=== PATIENT | female | born 1960 | race Caucasian/White ===

== ENCOUNTER → 2022-01-16 | Outpatient (CLI) | payer BC ==
--- NOTE | 2022-01-16 15:07 | Diagnostic Imaging Report ---
PROCEDURE: CT right lower extremity without contrast. TECHNIQUE: Axially acquired CT was obtained through the right lower extremity without intravenous contrast. Coronal and sagittal reformations were also performed. Auto Exposure Controls were utilized during the CT exam to meet ALARA standards for radiation dose reduction. INDICATION: Closed fracture of the tibial plateau. Displaced fracture of the tibial condyle. Pain. EXAMINATION: CT of the right knee without contrast 01/16/2022. Correlation made to radiographs of the knee from 01/12/2022. FINDINGS: There is a comminuted fracture through the lateral tibial plateau with intra-articular extension noted. Lucencies extend into portions of the medial joint space. Fractures involve the tibial eminences as well. There is focal depression along the lateral tibial plateau measuring approximately 4 to 5 mm. A large vertical fracture line extends through the lateral aspect of the lateral tibial plateau causing a separate fracture fragment with diastases of approximately 3 to 4 mm. There is irregularity along the fibular head consistent with a nondisplaced fracture. The visualized aspects of the distal femur and the patella appear intact. There is a moderate to large lipohemarthrosis. There is fat stranding within the subcutaneous soft tissues likely reactive edema. IMPRESSION: 1. Depressed comminuted intra-articular fracture of the lateral tibial plateau with some fracture lines extending into the medial tibial plateau. The tibial eminences are involved within the fracture site as well. 2. Secondary lipohemarthrosis. Dictated by: Dictated on workstation # [id number]
== END ==
LOC: RAD 14:45
PROVIDERS: ATTEND Orthopaedic Surgery
DX: S82.121A Displaced fracture of lateral condyle of right tibia, initial encounter for closed fracture (principal); M25.061 Hemarthrosis, right knee; X58.XXXA Exposure to other specified factors, initial encounter
CPT/HCPCS: 73700

== ENCOUNTER → 2022-01-20 | Outpatient (CLI) | payer BC ==
[~2022-01-20] MED LIST: MULT-1136 PO; OXYC-556 PO
== END ==
LOC: ORTHO 09:41
PROVIDERS: ATTEND Orthopaedic Surgery
DX: S82.121A Displaced fracture of lateral condyle of right tibia, initial encounter for closed fracture (principal); X58.XXXA Exposure to other specified factors, initial encounter
CPT/HCPCS: 99203

== ENCOUNTER 2022-01-23 05:52 | Day surgery (SDC) | payer BC ==
[~2022-01-23] VITALS: Ht 170.2 cm; Wt 86.5 kg
[2022-01-23] VITALS (13 sets, daily range): BP systolic 114–196; BP diastolic 77–97
[2022-01-23] MEDS ORDERED: BUPIVACAINE 0.5% 30 ML (SENSORCAINE) VIAL ONE (06:34)
[2022-01-23] MEDS ORDERED: OXYC-556 PO ×2 (06:39→09:48)
[2022-01-23] MEDS ORDERED: MULT-1136 PO (06:39)
[2022-01-23] MEDS: LACTATED RINGERS 1,000 ML IV PRN ×3 (06:42→10:23)
[2022-01-23] MEDS ORDERED: ONDANSETRON 4 MG/2 ML (SDV) Z0FRAN IVP ONE (06:45)
[2022-01-23] MEDS ORDERED: FAMOTIDINE 20MG/2ML IV (PEPCID) IVP ONE (06:45)
[2022-01-23] MEDS ORDERED: LIDOCAINE PF 2% 5 ML (XYLOCAINE) VIAL ONE (07:04)
[2022-01-23] MEDS ORDERED: MIDAZOLAM 2 MG/2 ML (VERSED) VIAL ONE (07:04)
[2022-01-23] MEDS ORDERED: fentaNYL INJ 100 MCG/2 ML AMP ONE ×3 (07:04→09:14)
[2022-01-23] MEDS ORDERED: proPOfol 200 MG/20 ML (DIPRIVAN) VIAL IV ONE (07:04)
--- NOTE | 2022-01-23 07:22 | Progress Note-Pre Operative ---
Pre-Operative Progress Note Date of Available H&P: Jan 20, 2022 Date H&P Reviewed: Jan 23, 2022 Time H&P Reviewed: 07:05 History & Physical: H&P Reviewed, Patient Examed, No changes noted Pre-Operative Diagnosis: Right Lateral Tibial Plateau Fracture BRENNAN ESPINOZA MD Jan 23, 2022 07:22
[2022-01-23] MEDS ORDERED: ceFAZolin 2 GM IV Premixed 50 ML ONE (07:32)
[2022-01-23] MEDS ORDERED: ceFAZolin 2 GM IV Premixed 50 ML IV ONE (07:45)
[2022-01-23] MEDS ORDERED: SEVOFLURANE (ULTANE) 15 ML INHAL SOLN ONE (09:13)
--- NOTE | 2022-01-23 09:36 | Anesthesia-General Post-Op ---
General Patient Condition Mental Status/LOC: Same as Preop Cardiovascular: Satisfactory Nausea/Vomiting: Absent Respiratory: Satisfactory Pain: Controlled Complications: Absent Post Op Complications Complications None Follow Up Care/Instructions Patient Instructions None needed. Anesthesia/Patient Condition Patient Condition Patient is doing well, no complaints, stable vital signs, no apparent adverse anesthesia problems. No complications reported per nursing. FLYNN PITTMAN CRNA Jan 23, 2022 09:36
--- NOTE | 2022-01-23 09:43 | Operative Report - Ortho ---
Operative Report Surgeon (s)/Household Appliance Repairer (s) Surgeon BRENNAN ESPINOZA MD Household Appliance Repairer n/a Pre-Operative Diagnosis Right Lateral Tibial Plateau Fracture Post-Operative Diagnosis same Operative Report Date of Procedure: Jan 23, 2022 Name of Procedure Performed: Open Reduction and Internal Fixation of Right Lateral Tibial Plateau Fracture Description & Findings After obtaining informed consent and marking the patient in the preoperative holding area, the patient was administered IV antibiotics. The patient was taken to the operating room and general anesthesia was induced. Surgical timeout was taken. The right lower extremity was prepped and draped in the usual sterile fashion. Anterolateral approach to the proximal tibia was utilized. Periosteal elevator was used to expose the proximal tibia and the fracture site. The depressed fragment was elevated through the fracture site using a small tamp and mallet. C-arm confirmed position of the depressed f ragment. Periarticular clamp was used to reduce the lateral plateau fracture. C-arm demonstrated good alignment of the joint surface. 2 wires for 6.5 screws were placed across the fracture site and the clamp was removed. Measurement was taken off of the wires. 2 75 mm in length 6.5 mm screws were selected. A washer was placed on the more anterior screw. Hydroset was placed through the fracture site under the depressed fragment and allowed to harden. Drill was used to open the lateral cortex and the screws were placed over the wires by hand. Wires were removed. C-arm in the AP and lateral planes demonstrated adequate reduction of the fracture with good position of the hydroset and screws. Images were transferred to PACS. Wound was irrigated with normal saline. Closed with 2 Ticron, 2-0 vicryl, and trina. Wound was injected with local anesthetic and dressed with xeroform, 4x4s, ABD, cast padding, and TANYA wrap. Patient tolerated the procedure well and was stable to recovery room. Anesthesia Type General Estimated Blood Loss minimal Specimen(s) collected/removed None BRENNAN ESPINOZA MD Jan 23, 2022 09:43
[2022-01-23] MEDS ORDERED: ONDANSETRON 4 MG/2 ML (SDV) Z0FRAN IVP PRN (09:45)
[2022-01-23] MEDS ORDERED: HYDROmorphone 2 MG/ML VIAL (DILAUDID) IV ONE (09:45)
--- NOTE | 2022-01-23 09:58 | Diagnostic Imaging Report ---
INDICATION: Fluoroscopy for right knee ORIF. Fluoroscopy was provided in the OR during a right knee ORIF. 82 seconds of fluoroscopic time was utilized. 2 images were obtained demonstrating 2 partially threaded screws extending through the proximal tibia. Alignment is anatomic. IMPRESSION: Fluoroscopy for right knee ORIF. Dictated by: Dictated on workstation # [id number]
[2022-01-23] MEDS ORDERED: oxyCODONE/APAP 10/325MG (PERCOCET 10) TABLET PO ONE (11:00)
== END 2022-01-23 12:00 | disposition home or self-care (01) ==
LOC: SDC 05:52
PROVIDERS: ATTEND Orthopaedic Surgery
DX: S82.141A Displaced bicondylar fracture of right tibia, initial encounter for closed fracture (principal)
CPT/HCPCS: 27535; 76000; 87081; C1713 ×3

== ENCOUNTER → 2022-02-07 | Outpatient (CLI) | payer BC | LOC: ORTHO 09:03 | PROVIDERS: ATTEND Orthopaedic Surgery | DX: Z47.89 Encounter for other orthopedic aftercare (principal) ==

== ENCOUNTER → 2022-02-21 | Outpatient (CLI) | payer BC | LOC: ORTHO 17:15 | PROVIDERS: ATTEND Orthopaedic Surgery | DX: Z47.89 Encounter for other orthopedic aftercare (principal); Z98.890 Other specified postprocedural states ==

== ENCOUNTER → 2022-03-07 | Outpatient (CLI) | payer BC ==
--- NOTE | 2022-03-07 12:27 | Diagnostic Imaging Report ---
Indication: Postop ORIF of tibial plateau fracture. FINDINGS: 3 views. The lateral tibial plateau fracture shows near anatomical alignment with 2 cortical bone screws now present. The femoral condyles are smooth with good preservation of joint space. IMPRESSION: Findings of ORIF for lateral tibial plateau fracture. Dictated by: Dictated on workstation # [id number]
== END ==
LOC: ORTHO 08:26
PROVIDERS: ATTEND Orthopaedic Surgery
DX: Z47.89 Encounter for other orthopedic aftercare (principal); Z98.890 Other specified postprocedural states
CPT/HCPCS: 73562

== ENCOUNTER → 2022-04-04 | Outpatient (CLI) | payer BC ==
--- NOTE | 2022-04-04 10:15 | Diagnostic Imaging Report ---
INDICATION: Follow-up orthopedic assessment COMPARISON: 03/07/2022 TECHNIQUE: 3 radiographs of the right knee dated 04/04/2022 FINDINGS: Two partially cannulated screws are again identified involving the tibial plateau extending from the lateral margin. No evidence of hardware complication. Previously noted fractures involving the lateral tibial plateau are not as well visualized with increased sclerosis within the region. Overall alignment appears stable. No new fracture or dislocation. No destructive osseous process. Mild medial and lateral joint space narrowing. No large knee joint effusion. No suspicious radiopaque foreign body. IMPRESSION: Interval healing of previously noted internally fixated lateral tibial plateau fractures with alignment remaining stable without hardware complication or new acute osseous abnormality. Dictated by: Dictated on workstation # [id number]
== END ==
LOC: ORTHO 08:14
PROVIDERS: ATTEND Orthopaedic Surgery
DX: Z47.89 Encounter for other orthopedic aftercare (principal); S82.142D Displaced bicondylar fracture of left tibia, subsequent encounter for closed fracture with routine healing; X58.XXXD Exposure to other specified factors, subsequent encounter
CPT/HCPCS: 73562

== ENCOUNTER → 2022-05-16 | Outpatient (CLI) | payer BC | LOC: ORTHO 08:34 | PROVIDERS: ATTEND Orthopaedic Surgery | DX: Z47.89 Encounter for other orthopedic aftercare (principal) | CPT/HCPCS: 99213 ==